=== PATIENT | male | born 1950 | race Caucasian/White ===

== ENCOUNTER 2017-07-03 14:36 | Emergency (ER) | payer OTHER ==
[~2017-07-03] VITALS: Ht 182.9 cm; Wt 86.2 kg
[2017-07-03 14:43] VITALS: BP 133/86
--- NOTE | 2017-07-03 15:25 | ED UPPER/LOWER EXTREMITY COMPL ---
History of Present Illness General Chief Complaint: Laceration Procedure Stated Complaint: L KNEE +LAC FROM CHAINSAW Source: patient, old records Exam Limitations: no limitations Vital Signs & Intake/Output Vital Signs & Intake/Output Vital Signs Date Time Temp Pulse Resp B/P B/P Pulse O2 O2 Flow FiO2 Mean Ox Delivery Rate 07/03 1458 Room Air 07/03 1443 98.6 103 20 133/86 97 Room Air Allergies Coded Allergies: No Known Allergies (07/03/17) Triage Note: LAC TO LEFT KNEE FROM [employer]. BLEEDING CONTROLLED. LAST TETANUS WITHIN 10 YEARS Triage Nurses Notes Reviewed? yes Onset: Just prior to arrival Duration: minute(s):, constant, continues in ED Timing: recent history Severity: mild Pain/Injury Location: Left: Knee. Method of Injury: incised, laceration, chainsaw Associated Symptoms: GCS 15 since HPI: Prior to admission patient was cutting firewood with [employer] lost balance and cut his left knee. There was no other injury fever chills nausea vomiting diarrhea abdominal pain chest pain shortness breath headache dysuria rash. Past History Travel History Traveled to [place] past 21 day No Medical History Any Pertinent Medical History? see below for history Cardiovascular: hypertension Surgical History Surgical History: non-contributory Psychosocial History What is your primary language British Tobacco Use: Never used Family History Hx Contributory? No Review of Systems Review of Systems Constitutional: Reports: no symptoms. EENTM: Reports: no symptoms. Respiratory: Reports: no symptoms. Cardiovascular: Reports: no symptoms. Gastrointestinal/Abdominal: Reports: no symptoms. Genitourinary: Reports: no symptoms. Musculoskeletal: Reports: no symptoms. Skin: Reports: see HPI. Neurological/Psychological: Reports: no symptoms. Hematologic/Endocrine: Reports: no symptoms. Immunological: Reports: no symptoms. All Other Systems: Reviewed and Negative Physical Exam Physical Exam General Appearance: well developed/nourished, alert, awake, comfortable Head: atraumatic, normal appearance Eyes: Bilateral: normal appearance, PERRL, EOMI. Ears, Nose, Throat: normal pharynx, normal ENT inspection, hearing grossly normal Neck: normal inspection, supple, full range of motion, no midline tenderness Cardiovascular/Respiratory: normal breath sounds, normal peripheral pulses, regular rate/rhythm, no respiratory distress Peripheral Pulses: 4+ carotid (R), 4+ carotid (L) Back: normal inspection, normal range of motion, no vertebral tenderness Shoulder Left: normal range of motion, normal inspection Shoulder Right: normal range of motion, normal inspection Elbow Left: normal range of motion, normal inspection Elbow Right: normal range of motion, normal inspection Hand Left: normal inspection, normal range of motion Hand Right: normal inspection, normal range of motion Upper Extremity Reflexes: 2+: bicep (R), bicep (L). Leg Left: normal range of motion, normal inspection Leg Right: normal range of motion, normal inspection Hip Left: normal range of motion, normal inspection Hip Right: normal range of motion, normal inspection Knee Left: normal range of motion, evidence of injury, 4 cm laceration over superior portion of the patella Knee Right: normal range of motion, normal inspection Foot Left: normal inspection, normal range of motion Foot Right: normal inspection, normal range of motion Lower Extremity Reflexes: 2+: knee (R), knee (L). Neurologic/Tendon: normal sensation, normal motor functions, normal tendon functions Skin: intact, normal color, warm/dry Lymphatic: no anterior cervical jorge Progress Differential Diagnosis: laceration Plan of Care: Wound repair Departure Departure Time of Disposition: 1523 Disposition: HOME OR SELF CARE Condition: Stable Clinical Impression Primary Impression: Laceration of knee, left Referrals: Patient Has No Primary Care Dr (PCP/Family) Additional Instructions: Staple removal 14 days Departure Forms: Customer Survey General Discharge Information Procedures Laceration/Wound Repair Laceration/Wound Repair: Wound Location: lower extremity Wound's Depth, Shape: irregular Wound Length (cm): 4 Wound Explored: clean, no foreign body removed, irrigated extensively Irrigated w/ Saline (ccs): 250 Betadine Prep? No Anesthesia: 1% lidocaine Volume Anesthetic (ccs): 5 Wound Repaired With: staple Suture Size/Type: roscoe Number of Sutures: 7 Layer Closure? No Sterile Dressing Applied: Yes Splint Applied? No Sling Applied? No Tetanus Status: up to date
== END 2017-07-03 15:50 ==
LOC: ERH 14:36
DX: S81.012A Laceration without foreign body, left knee, initial encounter (principal); W29.3XXA Contact with powered garden and outdoor hand tools and machinery, initial encounter; Y92.9 Unspecified place or not applicable; Y93.9 Activity, unspecified